=== PATIENT | male | born 1975 | race African-American/Black ===

== ENCOUNTER 2022-06-08 22:18 | Emergency (ER) | payer MEDICAID, OTHER ==
[~2022-06-08] VITALS: Ht 180.3 cm; Wt 94.0 kg
[2022-06-08 22:30] VITALS: BP 109/72
[2022-06-09] MEDS ORDERED: P20 PO (01:06)
[2022-06-09] MEDS ORDERED: HYDR28.485 TOP (01:06)
[2022-06-09] MEDS ORDERED: PROM25TA13 PO (01:06)
== END 2022-06-09 01:12 | disposition home or self-care (01) ==
LOC: ER 22:18
DX: L50.9 Urticaria, unspecified (principal); M19.90 Unspecified osteoarthritis, unspecified site; Z98.890 Other specified postprocedural states
CPT/HCPCS: 99283